=== PATIENT | male | born 1995 | race Caucasian/White ===

== ENCOUNTER 2017-01-29 10:44 | Emergency (ER) | payer SELFPAY ==
[2017-01-29] MEDS ORDERED: Lidocaine 2% Viscous Solution 15 ML Cup PO ONE (11:18)
[2017-01-29] MEDS ORDERED: Clindamycin HCl 150 MG Cap PO ONE (11:18)
--- NOTE | 2017-01-29 11:26 | EDM.PDOC ---
ED HPI GENERAL MEDICAL PROBLEM - General Chief Complaint: General Stated Complaint: TOOTH PAIN / [id number] Time Seen by Provider: 01/29/17 11:10 Source of Information: Reports: Patient History Limitations: Reports: No Limitations - History of Present Illness INITIAL COMMENTS - FREE TEXT/NARRATIVE: This 21 yo male patient reports to the ED with a 6 day history of pain in his right lower posterior jaw. The patient reports he has noticed increased pain throughout the week. The patient attempted to get into the dentist, but could not get an appointment until March. The patient was advised by his dentist to come to the ED for any additional symptoms. Onset: Gradual Onset Date: 01/23/17 Duration: Constant, Getting Worse Location: Reports: Face Quality: Reports: Ache, Sharp, Stabbing Severity: Severe Improves with: Reports: None Worsens with: Reports: None Associated Symptoms: Reports: No Other Symptoms Treatments CAREER RESOURCE SPECIALIST: Reports: NSAIDS - Related Data Allergies Allergy/AdvReac Type Severity Reaction Status Date / Time No Known Allergies Allergy Verified 01/29/17 11:15 Home Meds: Home Meds NK [No Known Home Meds] 0 mg PO DAILY 01/29/17 [History] Past Medical History - Past Health History Medical/Surgical History: Denies Medical/Surgical History ED ROS GENERAL - Review of Systems Review Of Systems: ROS reveals no pertinent complaints other than HPI. ED EXAM, GENERAL - Physical Exam Exam: See Below Exam Limited By: No Limitations General Appearance: Alert, WD/WN, Moderate Distress Eye Exam: Bilateral Eye: EOMI, Normal Inspection, PERRL Ears: Normal External Exam, Normal Canal, Hearing Grossly Normal, Normal TMs Nose: Normal Inspection, Normal Mucosa, No Blood Throat/Mouth: Normal Lips, Other (THe patient has a dental caries to his right lower molar with erythema of jeff gums) Head: Atraumatic, Normocephalic Neck: Normal Inspection, Supple, Non-Tender, Full Range of Motion Respiratory/Chest: No Respiratory Distress, Lungs Clear, Normal Breath Sounds, No Accessory Muscle Use, Chest Non-Tender Cardiovascular: Normal Peripheral Pulses, Regular Rate, Rhythm, No Edema, No Gallop, No JVD, No Murmur, No Rub GI/Abdominal: Normal Bowel Sounds, Soft, Non-Tender, No Organomegaly, No Distention, No Abnormal Bruit, No Mass (Male) Exam: Deferred Rectal (Males) Exam: Deferred Back Exam: Normal Inspection Extremities: Normal Inspection, Normal Range of Motion, Non-Tender, Normal Capillary Refill, No Pedal Edema Neurological: Alert, Oriented, CN II-XII Intact, Normal Cognition, Normal Gait, Normal Reflexes, No Motor/Sensory Deficits Psychiatric: Normal Affect, Normal Mood Skin Exam: Warm, Dry, Intact, Normal Color, No Rash Lymphatic: No Adenopathy Course - Vital Signs Last Recorded V/S: Last Vital Signs Temp 36.2 C 01/29/17 11:18 Pulse 92 01/29/17 11:18 Resp 16 01/29/17 11:18 BP Pulse Ox 96 01/29/17 11:18 - Orders/Labs/Meds Meds: Medications Discontinued Medications Generic Name Dose Route Start Last Admin Trade Name Tamir PRN Reason Stop Dose Admin Clindamycin HCl 300 mg 01/29/17 11:18 Cleocin PO 01/29/17 11:19 ONETIME ONE Lidocaine HCl 15 ml 01/29/17 11:18 Xylocaine 2% Viscous PO 01/29/17 11:19 ONETIME ONE Departure - Departure Time of Disposition: 11:21 Disposition: Home, Self-Care 01 Condition: Fair Clinical Impression: Pain due to dental caries, Dental abscess - Discharge Information Instructions: Dental Abscess, [id number], Dental Caries, [id number] Forms: ED Department Discharge Care Plan Goals: The patient was advised of the examination results during the visit. The patient was given an oral dose of Clindamycin (300 mg) and Viscous Lidocaine 2% while in the ED. The patient was discharged with a script for Viscous Lidocaine 2% #100 mL to apply 5-10 mL to a cotton swab directly to the area of concern and Clindamycin (300 mg) #40 to take 1 by mouth 4 times per day for 10 days. The patient was encouraged to follow-up with his dentist for continued evaluation and further care. If the patient has any additional symptoms or concerns, the patient should visit his primary care facility or return to the emergency department.
== END 2017-01-29 11:36 | disposition home or self-care (01) ==
LOC: DL.ED 10:44
DX: K04.7 Periapical abscess without sinus (principal); K02.9 Dental caries, unspecified
CPT/HCPCS: 99282; A9270